=== PATIENT | male | born 1990 | race African-American/Black ===

== ENCOUNTER 2016-09-28 21:41 | Emergency (ER) | payer MEDICAID, OTHER ==
[~2016-09-28] VITALS: Ht 162.6 cm; Wt 62.0 kg
[2016-09-29] MEDS ORDERED: SODIUM CHLORIDE 0.9% 1,000 ML IV ONE (01:18)
[2016-09-29] MEDS ORDERED: ONDANSETRON HCL 4MG/2ML VIAL IM ONE (01:30)
[2016-09-29] MEDS ORDERED: ONDANSETRON HCL 4MG/2ML VIAL IV ONE (01:30)
[2016-09-29] MEDS ORDERED: KETOROLAC 30MG/ML VIAL IV ONE (01:30)
[2016-09-29 01:47] LABS: BASOPHILS % 0.3 % (0.0-2.0); HEMATOCRIT. 40.6 % (42.0-52.0); HEMOGLOBIN. 13.7 g/dL (14.0-18.0); LYMPHOCYTES % 9.2 % (20.0-50.0); MEAN CORPUSCULAR HEMOGLOBIN 31.4 pg (28.0-32.0); MEAN CORPUSCULAR VOLUME 93.3 fL (80.0-94.0); MEAN PLATELET VOLUME 9.2 fl (7.4-10.4); MONOCYTES % 7.1 % (2.0-8.0); NEUTROPHILS % 82.4 % (40.0-76.0); PLATELET 272 x1000/uL (130-400); RED BLOOD CELL COUNT 4.35 mill/uL (4.7-6.1); RED CELL DISTRIBUTION WIDTH 13.5 % (11.6-14.6)
[2016-09-29 02:31] LABS: CARBON DIOXIDE 21 mEq/L (21-32); CHLORIDE 107 mEq/L (98-107)
[2016-09-29 03:03] LABS: CLARITY URINE TURBID (CLEAR); COLOR URINE RED (YELLOW); GLUCOSE URINE NEGATIVE (NEGATIVE); KETONES URINE NEGATIVE (NEGATIVE); LEUKOCYTE ESTERASE URINE 3+ (NEGATIVE); NITRITE URINE NEGATIVE (NEGATIVE); OCCULT BLOOD URINE 3+ (NEGATIVE); PROTEIN URINE 3+ (NEGATIVE); SPECIFIC GRAVITY URINE 1.015 (1.005-1.030); UROBILINOGEN URINE 0.2 E.U./dL (0.2-1.0)
[2016-09-29] MEDS ORDERED: ACETAMINOPHEN WITH CODEINE 300/30MG TABLET PO ONE (03:15)
[2016-09-29] MEDS ORDERED: CEFTRIAXONE 1 G PREMIX 50 ML IV ONE (04:00)
[2016-09-29 05:02] VITALS: BP 131/81
== END 2016-09-29 05:25 | disposition home or self-care (01) ==
LOC: ER 21:55
DX: N20.0 Calculus of kidney (principal); N39.0 Urinary tract infection, site not specified; N21.0 Calculus in bladder; F17.200 Nicotine dependence, unspecified, uncomplicated; N13.30 Unspecified hydronephrosis; Z87.442 Personal history of urinary calculi
CPT/HCPCS: 36415; 76770; 80053; 81001; 85025; 96361; 96365; 96372; 96375; 99285; J0696; J1885; J2405; J7030; Z7610